=== PATIENT | female | born 1980 | race Caucasian/White ===

== ENCOUNTER 2020-03-18 06:40 | Emergency (ER) | payer MEDICAID ==
--- NOTE | 2020-03-18 07:14 | EDM.PDOC ---
ED HPI GENERAL MEDICAL PROBLEM - General Chief Complaint: General Stated Complaint: PANIC ATTACK Time Seen by Provider: 03/18/20 07:05 Source of Information: Reports: Patient History Limitations: Reports: No Limitations - History of Present Illness INITIAL COMMENTS - FREE TEXT/NARRATIVE: The patient states she woke up multiple times during the night with a sensation of having shortness of breath. Has not had fever or chest pain. States she woke up every half hour. On family awakening this morning she feels markedly sleep deprived. She admits to a history of anxiety and panic attacks and realizes that she is having a panic attack at this time. She is hoping for medication to help her with her anxiety. She is currently on sertraline and has taken benzodiazepines in the past. Onset: Today Duration: Getting Worse Location: Reports: Chest Severity: Severe Worsens with: Reports: Breathing Associated Symptoms: Reports: Malaise, Shortness of Breath. 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 Denies: Fever HEENT: Reports: No Symptoms Respiratory: Reports: Shortness of Breath. Denies: Wheezing, Pleuritic Chest Pain Cardiovascular: Denies: Chest Pain Endocrine: Reports: Fatigue GI/Abdominal: Denies: Abdominal Pain : Denies: Dysuria Musculoskeletal: Reports: No Symptoms Skin: Reports: No Symptoms Neurological: Denies: Trouble Speaking, Difficulty Walking Psychiatric: Reports: Anxiety ED EXAM, GENERAL - Physical Exam Exam: See Below Exam Limited By: No Limitations General Appearance: Alert, Moderate Distress Ears: Normal External Exam Nose: Normal Inspection Throat/Mouth: Normal Inspection Head: Atraumatic Neck: Normal Inspection, Full Range of Motion Respiratory/Chest: No Respiratory Distress, No Accessory Muscle Use. No: Wheezing Cardiovascular: Normal Peripheral Pulses, Regular Rate, Rhythm GI/Abdominal: Soft, Non-Tender, Other (obviosly gravid) Extremities: Normal Inspection, Normal Range of Motion Neurological: Alert, Oriented Psychiatric: Anxious, Tearful Course - Vital Signs Text/Narrative:: The patient became quite agitated when I told her that I would not be giving her any benzodiazepine. I explained to her that it is considered to be category D, only to be used in life-threatening situations of which this is not one. I did recommend some routine laboratory screening such as urinalysis and blood studies. I did not tell the patient that I was going to order any drug screen. The patient wanted to know what else I could do to help her. I did recommend counseling. The patient immediately stood up and stated that she was going to go outside because she needed fresh air. Nursing staff did discharge instructions outside the hospital. The patient was provided crisis line telephone number to call in order to talk to someone. Last Recorded V/S: Last Vital Signs Temp 36.4 C 03/18/20 07:00 Pulse 93 03/18/20 07:00 Resp 20 03/18/20 07:00 BP 153/85 H 03/18/20 07:00 Pulse Ox 97 03/18/20 07:00 Departure - Departure Time of Disposition: 07:16 Disposition: Home, Self-Care 01 Condition: Good Clinical Impression: Panic attack - Discharge Information Instructions: Panic Attack, [id number] Referrals: PCP,None [Primary Care Provider] - Forms: ED Department Discharge Additional Instructions: [facility] crisis line to access someone to talk to. Do not take benzodiazepine at this point in your Sepsis Event Note (ED) - Evaluation Sepsis Screening Result: No Definite Risk - Focused Exam Vital Signs: Vital Signs Temp Pulse Resp BP Pulse Ox 03/18/20 07:00 36.4 C 93 20 153/85 H 97 03/18/20 06:56 36.4 C 93 20 153/85 H 97
== END 2020-03-18 07:27 | disposition home or self-care (01) ==
LOC: JP.ED 06:40 → MERGE 06:40 → JP.ED 07:27
DX: F41.0 Panic disorder [episodic paroxysmal anxiety] (principal); Z79.899 Other long term (current) drug therapy
CPT/HCPCS: 99283

== ENCOUNTER 2021-01-06 10:10 | Emergency (ER) | payer MEDICAID ==
[2021-01-06] MEDS ORDERED: HYDROmorphone 0.5 MG/0.5 ML Syringe IVPUSH ONE ×2 (10:27→13:19)
[2021-01-06] MEDS ORDERED: Lactated Ringers 1,000 ML IV ONE ×2 (10:27→12:31)
[2021-01-06] MEDS ORDERED: Ondansetron 4 MG/2 ML SDV IVPUSH ONE ×2 (10:28→11:26)
[2021-01-06] MEDS ORDERED: Loperamide 2 MG Cap PO ONE (10:35)
[2021-01-06] MEDS ORDERED: LORazepam 2 MG/ML SDV IVPUSH ONE (10:37)
--- NOTE | 2021-01-06 10:38 | EDM.PDOC ---
ED HPI GENERAL MEDICAL PROBLEM - General Chief Complaint: Gastrointestinal Problem Stated Complaint: PANIC ATTACK Time Seen by Provider: 01/06/21 10:20 Source of Information: Reports: Patient, Old Records, RN History Limitations: Reports: No Limitations - History of Present Illness INITIAL COMMENTS - FREE TEXT/NARRATIVE: 40 yo female presents with nausea, vomiting, and diarrhea since about 0500h today. No fever or bleeding. No past surgeries. She has been around friends with similar sx's. No hx of the same. No heavy ETOH use. Onset: Today Onset Date: 01/06/21 Onset Time: 05:00 Duration: Hour(s):, Getting Worse Location: Reports: Abdomen Quality: Reports: Ache Severity: Severe Improves with: Reports: None Worsens with: Reports: None Context: Reports: Other (See HPI) Associated Symptoms: Reports: Nausea/Vomiting, Other (diarrhea). 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: Psychiatric History: Reports: Anxiety, Panic Attack - Past Surgical History Head Surgeries/Procedures: Reports: None Female Surgical History: Reports: Section Social & Family History - Tobacco Use Tobacco Use Status *Q: Never Tobacco User Second Hand Smoke Exposure: No - Caffeine Use Caffeine Use: Reports: None - Recreational Drug Use Recreational Drug Use: No ED ROS GENERAL - Review of Systems Review Of Systems: See Below Constitutional: Reports: No Symptoms HEENT: Reports: No Symptoms Respiratory: Reports: No Symptoms Cardiovascular: Reports: No Symptoms GI/Abdominal: Reports: Abdominal Pain, Diarrhea, Nausea, Vomiting. Denies: Black Stool, Bloody Stool, Constipation, Distension, Flatus, Hematemesis, Hematochezia, Melena : Reports: No Symptoms Musculoskeletal: Reports: No Symptoms Skin: Reports: No Symptoms Neurological: Reports: No Symptoms Psychiatric: Reports: Anxiety ED EXAM, GI/ABD - Physical Exam Exam: See Below Exam Limited By: No Limitations General Appearance: Alert, WD/WN, Moderate Distress Eyes: Bilateral: Normal Appearance Ears: Normal External Exam, Normal Canal, Hearing Grossly Normal Nose: Normal Inspection, No Blood Throat/Mouth: Normal Inspection, Normal Lips, Normal Oropharynx, Normal Voice, No Airway Compromise Head: Atraumatic, Normocephalic Neck: Normal Inspection Respiratory/Chest: No Respiratory Distress, Lungs Clear, Normal Breath Sounds, No Accessory Muscle Use Cardiovascular: Regular Rate, Rhythm, No Edema GI/Abdominal Exam: Soft, Non-Tender, No Distention, Abnormal Bowel Sounds (hypoactive). No: Distended, Guarding, Rigid, Rebound, Tender Back Exam: Normal Inspection Extremities: Normal Inspection Neurological: Alert, Oriented, CN II-XII Intact, Normal Cognition, No Motor/Sensory Deficits Psychiatric: Normal Affect, Normal Mood Skin Exam: Warm, Dry, Intact, Normal Color, No Rash Course - Vital Signs Last Recorded V/S: Last Vital Signs Temp 36.4 C 01/06/21 14:14 Pulse 58 L 01/06/21 14:14 Resp 18 01/06/21 14:14 BP 111/72 01/06/21 14:14 Pulse Ox 100 01/06/21 14:14 - Orders/Labs/Meds Labs: Laboratory Tests 01/06/21 01/06/21 01/06/21 Range/Units 10:36 10:36 11:00 WBC 12.2 H (4.5-11.0) K/uL RBC 4.86 (3.30-5.50) M/uL Hgb 14.4 (12.0-15.0) g/dL Hct 43.1 (36.0-48.0) % MCV 89 (80-98) fL MCH 30 (27-31) pg MCHC 33 (32-36) % Plt Count 282 (150-400) K/uL Sodium 141 (140-148) mmol/L Potassium 3.8 (3.6-5.2) mmol/L Chloride 101 (100-108) mmol/L Carbon Dioxide 23 (21-32) mmol/L Anion Gap 16.6 H (5.0-14.0) mmol/L BUN 20 H (7-18) mg/dL Creatinine 1.2 H (0.6-1.0) mg/dL Est Cr Clr Drug Dosing 57.75 mL/min Estimated GFR (MDRD) 50 L (>60) Glucose 131 H (74-106) mg/dL Calcium 9.2 (8.5-10.1) mg/dL Total Bilirubin 0.9 (0.2-1.0) mg/dL AST 18 (15-37) U/L ALT 31 (12-78) U/L Alkaline Phosphatase 134 H (46-116) U/L C-Reactive Protein 0.14 (0.0-0.3) mg/dL Total Protein 8.3 H (6.4-8.2) g/dL Albumin 4.5 (3.4-5.0) g/dL Globulin 3.8 H (2.3-3.5) g/dL Albumin/Globulin Ratio 1.2 (1.2-2.2) Lipase 228 (73-393) U/L Urine Color (YELLOW) Urine Appearance (CLEAR) Urine pH (5.0-8.0) Ur Specific [place] (1.008-1.030) Urine Protein (NEGATIVE) mg/dL Urine Glucose (UA) (NEGATIVE) mg/dL Urine Ketones (NEGATIVE) mg/dL Urine Occult Blood (NEGATIVE) Urine Nitrite (NEGATIVE) Urine Bilirubin (NEGATIVE) Urine Urobilinogen (0.2-1.0) EU/dL Ur Leukocyte Esterase (NEGATIVE) Urine RBC (0-5) Urine WBC (0-5) Ur Epithelial Cells Amorphous Sediment Urine Bacteria Urine Mucus Urine HCG, Qual Urine Opiates Screen (NEGATIVE) Ur Oxycodone Screen (NEGATIVE) Urine Methadone Screen (NEGATIVE) Ur Propoxyphene Screen (NEGATIVE) Ur Barbiturates Screen (NEGATIVE) Ur Tricyclics Screen (NEGATIVE) Ur Phencyclidine Scrn (NEGATIVE) Ur Amphetamine Screen (NEGATIVE) U Methamphetamines Scrn (NEGATIVE) Urine MDMA Screen (NEGATIVE) U Benzodiazepines Scrn (NEGATIVE) U Cocaine Metab Screen (NEGATIVE) U Marijuana (THC) Screen (NEGATIVE) 01/06/21 01/06/21 01/06/21 Range/Units 13:06 13:06 13:27 WBC (4.5-11.0) K/uL RBC (3.30-5.50) M/uL Hgb (12.0-15.0) g/dL Hct (36.0-48.0) % MCV (80-98) fL MCH (27-31) pg MCHC (32-36) % Plt Count (150-400) K/uL Sodium (140-148) mmol/L Potassium (3.6-5.2) mmol/L Chloride (100-108) mmol/L Carbon Dioxide (21-32) mmol/L Anion Gap (5.0-14.0) mmol/L BUN (7-18) mg/dL Creatinine (0.6-1.0) mg/dL Est Cr Clr Drug Dosing mL/min Estimated GFR (MDRD) (>60) Glucose (74-106) mg/dL Calcium (8.5-10.1) mg/dL Total Bilirubin (0.2-1.0) mg/dL AST (15-37) U/L ALT (12-78) U/L Alkaline Phosphatase (46-116) U/L C-Reactive Protein (0.0-0.3) mg/dL Total Protein (6.4-8.2) g/dL Albumin (3.4-5.0) g/dL Globulin (2.3-3.5) g/dL Albumin/Globulin Ratio (1.2-2.2) Lipase (73-393) U/L Urine Color Yellow (YELLOW) Urine Appearance Slightly cloudy A (CLEAR) Urine pH 8.5 H (5.0-8.0) Ur Specific [place] 1.020 (1.008-1.030) Urine Protein 30 H (NEGATIVE) mg/dL Urine Glucose (UA) Negative (NEGATIVE) mg/dL Urine Ketones Trace H (NEGATIVE) mg/dL Urine Occult Blood Negative (NEGATIVE) Urine Nitrite Negative (NEGATIVE) Urine Bilirubin Negative (NEGATIVE) Urine Urobilinogen 0.2 (0.2-1.0) EU/dL Ur Leukocyte Esterase Negative (NEGATIVE) Urine RBC Not seen (0-5) Urine WBC 0-5 (0-5) Ur Epithelial Cells Many Amorphous Sediment Not seen Urine Bacteria Moderate Urine Mucus Not seen Urine HCG, Qual Negative Urine Opiates Screen Negative (NEGATIVE) Ur Oxycodone Screen Negative (NEGATIVE) Urine Methadone Screen Negative (NEGATIVE) Ur Propoxyphene Screen Negative (NEGATIVE) Ur Barbiturates Screen Negative (NEGATIVE) Ur Tricyclics Screen Negative (NEGATIVE) Ur Phencyclidine Scrn Negative (NEGATIVE) Ur Amphetamine Screen Negative (NEGATIVE) U Methamphetamines Scrn Negative (NEGATIVE) Urine MDMA Screen Negative (NEGATIVE) U Benzodiazepines Scrn Presumptive positive H (NEGATIVE) U Cocaine Metab Screen Negative (NEGATIVE) U Marijuana (THC) Screen Presumptive positive H (NEGATIVE) Meds: Medications Discontinued Medications Generic Name Dose Route Start Last Admin Trade Name Freq PRN Reason Stop Dose Admin Diphenhydramine HCl 50 mg 01/06/21 14:35 01/06/21 14:40 Diphenhydramine 50 Mg/Ml Sdv IVPUSH 01/06/21 14:36 50 mg ONETIME ONE Administration Hydromorphone HCl 0.5 mg 01/06/21 10:27 01/06/21 10:37 Hydromorphone 0.5 Mg/0.5 Ml Syringe IVPUSH 01/06/21 10:28 0.5 mg ONETIME ONE Administration Hydromorphone HCl 0.5 mg 01/06/21 13:19 01/06/21 13:27 Hydromorphone 0.5 Mg/0.5 Ml Syringe IVPUSH 01/06/21 13:20 0.5 mg ONETIME ONE Administration Lactated Ringer's 1,000 mls @ 1,000 mls/hr 01/06/21 10:27 01/06/21 10:38 Ringers, Lactated IV 01/06/21 11:26 1,000 mls/hr BOLUS ONE Administration Lactated Ringer's 1,000 mls @ 1,000 mls/hr 01/06/21 12:31 01/06/21 13:25 Ringers, Lactated IV 01/06/21 13:30 1,000 mls/hr BOLUS ONE Administration Sodium Chloride 80 mls @ 3.5 mls/sec 01/06/21 14:00 01/06/21 14:46 Normal Saline IV 01/06/21 14:01 3.5 mls/sec ASDIRECTED SHAYAN Administration Iopamidol 100 ml 01/06/21 14:00 01/06/21 14:46 Iopamidol 612 Mg/Ml 100 Ml Bottle IV 01/06/21 14:01 100 ml . DIRECTED SHAYAN Administration Ketorolac Tromethamine 30 mg 01/06/21 11:18 01/06/21 11:23 Ketorolac 30 Mg/Ml Sdv IVPUSH 01/06/21 11:19 30 mg ONETIME ONE Administration Loperamide HCl 4 mg 01/06/21 10:35 Loperamide 2 Mg Cap PO 01/06/21 10:36 ONETIME ONE Lorazepam 1 mg 01/06/21 10:37 01/06/21 10:42 Lorazepam 2 Mg/Ml Sdv IVPUSH 01/06/21 10:38 1 mg ONETIME ONE Administration Ondansetron HCl 4 mg 01/06/21 10:28 01/06/21 10:38 Ondansetron 4 Mg/2 Ml Sdv IVPUSH 01/06/21 10:29 4 mg ONETIME ONE Administration Ondansetron HCl 4 mg 01/06/21 11:26 01/06/21 11:30 Ondansetron 4 Mg/2 Ml Sdv IVPUSH 01/06/21 11:27 4 mg ONETIME ONE Administration Prochlorperazine Edisylate 10 mg 01/06/21 14:35 01/06/21 14:42 Prochlorperazine 10 Mg/2 Ml Sdv IVPUSH 01/06/21 14:36 10 mg ONETIME ONE Administration Sodium Chloride 10 ml 01/06/21 13:52 01/06/21 14:47 Sodium Chloride 0.9% 10 Ml Syringe FLUSH 01/06/21 13:53 10 ml ONETIME ONE Administration - Radiology Interpretation Free Text/Narrative:: CT abd/pelvis with IV contrast-some incidental findings, nothing definitely acute. CT Results Date: 01/06/21 Departure - Departure Time of Disposition: 16:25 Disposition: Home, Self-Care 01 Condition: Fair Clinical Impression: Cannabinoid hyperemesis syndrome, Anxiety - Discharge Information *PRESCRIPTION DRUG MONITORING PROGRAM REVIEWED*: Not Applicable *COPY OF PRESCRIPTION DRUG MONITORING REPORT IN PATIENT ANILA: Not Applicable Instructions: Managing Anxiety, Adult Referrals: PCP,None [Primary Care Provider] - Forms: ED Department Discharge Additional Instructions: Continue your usual meds. Take lorazepam as directed for panic attacks or severe anxiety. See your provider for recheck as soon as possible. Avoid use of THC containing products. Return as needed. Sepsis Event Note (ED) - Focused Exam Vital Signs: Vital Signs Temp Pulse Resp BP Pulse Ox 01/06/21 14:14 36.4 C 58 L 18 111/72 100 01/06/21 10:51 36.4 C 58 L 18 111/72 100
[2021-01-06] MEDS ORDERED: Ketorolac 30 MG/ML SDV IVPUSH ONE (11:18)
[2021-01-06] MEDS ORDERED: Sodium Chloride 0.9% 10 ML Syringe FLUSH ONE (13:52)
[2021-01-06] MEDS ORDERED: Iopamidol 612 MG/ML 100 ML Bottle IV SCH (14:00)
[2021-01-06] MEDS ORDERED: Sodium Chloride 0.9% 80 ML IV SCH (14:00)
[2021-01-06] MEDS ORDERED: diphenhydrAMINE 50 MG/ML SDV IVPUSH ONE (14:35)
[2021-01-06] MEDS ORDERED: Prochlorperazine 10 MG/2 ML SDV IVPUSH ONE (14:35)
--- NOTE | 2021-01-06 14:46 | CT ---
Abdomen Pelvis w Cont CLINICAL HISTORY: Abdominal pain nausea, vomiting and diarrhea COMPARISON: None. TECHNIQUE: Axial tomographic images are obtained from the dome of the diaphragm to the pubic symphysis without IV contrast enhancement. No oral contrast was used. The dosage reduction and iterative reconstruction techniques employed. FINDINGS: The lung bases are clear. There is a small hiatal hernia The liver shows no mass or biliary dilatation. The gallbladder is distended. Patient may be NPO. The spleen has normal size and shape. The pancreas shows no mass or inflammatory change. The adrenal glands appear normal bilaterally. The kidneys show no mass, stones or hydronephrosis. The aorta has a normal contour. The proximal SMA show some downward angulation. This narrows the space between SMA and aorta. There is a fluid-filled stomach and descending duodenum. As the transverse duodenum crosses the aorta and goes from fluid-filled and dilated to normal caliber. The distal small bowel loops are fluid-filled but nondilated. Colon has a normal contour. The appendix has normal contour. There is some density in the cecal tip which could represent some enterolith formation. There may be some element of "nut tightener phenomenon". There is no suspicious retroperitoneal adenopathy. The uterus is enlarged. Bladder has a normal contour. Abdominal pelvic fat planes are well preserved. IMPRESSION: Fluid distention of stomach and descending duodenum may represent some transverse duodenal compression from the SMA. Distended gallbladder may be related to known recent eating. Nonacute small intestinal gas pattern.
== END 2021-01-06 16:20 | disposition home or self-care (01) ==
LOC: JP.ED 10:10
DX: R11.2 Nausea with vomiting, unspecified (principal); F12.90 Cannabis use, unspecified, uncomplicated; F41.9 Anxiety disorder, unspecified; Z79.899 Other long term (current) drug therapy
CPT/HCPCS: 36415; 74177; 80053; 80305; 81001; 81025; 83690; 85027; 86140; 96374; 96375; 96376; 99284; J0780; J1170; J1200; J1885; J2060; J2405; J7120; Q9967